=== PATIENT | male | born 1975 | race Caucasian/White ===

== ENCOUNTER 2016-06-24 11:22 | Emergency (ER) | payer OTHER ==
[2016-06-24] MEDS ORDERED: KETOROLAC 60 MG/2 ML VIAL IVP STA (12:07)
--- NOTE | 2016-06-24 12:09 | ED ---
General Adult HPI - General Chief complaint: Abdominal Pain Stated complaint: Flank/chest pain Time Seen by Provider: 06/24/16 11:50 Source: patient, RN notes reviewed Mode of arrival: ambulatory Limitations: no limitations - History of Present Illness Initial comments: This is a 40-year-old male presents emergency Department complaining of left lateral rib pain. Patient states his been ongoing for a week he saw his primary medical care doctor and was told he had strained his rib cage. Patient states she's been coughing quite a bit coughing up quite a bit of sputum. Patient denies any smoking history. Patient denies any anterior chest pain. Patient denies being short of breath. Patient states coughing does make the pain worse. Patient states he did not take anything for. Patient denied any abdominal pain to myself but he did tell triage she had abdominal pain. Patient denies any nausea vomiting diarrhea. Patient denies any chills he states he felt warm yesterday but didn't take his temperature. Patient denies headache patient denies numbness weakness. Patient denies any lightheadedness dizziness or near syncopal episode. Patient denies any dysuria hematuria urinary frequency. - Related Data Home Medications Medication Instructions Recorded Confirmed Ibuprofen [Motrin] 800 mg PO Q8HR PRN 12/24/15 06/24/16 Previous Rx's Medication Instructions Recorded Azithromycin [Zithromax Tri-James] 500 mg PO DAILY #3 tab 06/24/16 Ibuprofen [Motrin] 800 mg PO Q6HR PRN #20 tab 06/24/16 Allergies Allergy/AdvReac Type Severity Reaction Status Date / Time No Known Allergies Allergy Verified 06/24/16 11:48 Review of Systems ROS Statement: Those systems with pertinent positive or pertinent negative responses have been documented in the HPI. ROS Other: All systems not noted in ROS Statement are negative. Past Medical History Past Medical History: Asthma, GERD/Reflux, Hypertension, Osteoarthritis (OA) Additional Past Medical History / Comment(s): Bronchitis approx. 8 months ago. Hx. of hiatal hernia. History of Any Multi-Drug Resistant Organisms: MRSA Date of last positivie culture/infection: 01/2015 MDRO Source:: back of neck Past Surgical History: Hernia Repair Additional Past Surgical History / Comment(s): RIGHT LEG DEBRIDEMENT POST SPIDER BITE years ago. EGD/COLONOSCOPY, 07-24-15 Kary Fundoplication. Past Anesthesia/Blood Transfusion Reactions: No Reported Reaction Past Psychological History: No Psychological Hx Reported Smoking Status: Former smoker Past Alcohol Use History: Occasional Additional Past Alcohol Use History / Comment(s): QUIT SMOKING 1998, STARTED SMOKING AT AGE 19, smoked less than 1 PPD. Past Drug Use History: None Reported - Past Family History Father History Unknown: Yes Family Medical History: No Reported History Mother Family Medical History: Cancer Additional Family Medical History / Comment(s): Tongue General Exam - General Exam Comments Initial Comments: GENERAL: Patient is well-developed and well-nourished. Patient is nontoxic and well- hydrated and is in mild distress. ENT: Neck is soft and supple. No significant lymphadenopathy is noted. Oropharynx is clear. Moist mucous membranes. Neck has full range of motion without eliciting any pain. EYES: The sclera were anicteric and conjunctiva were pink and moist. Extraocular movements were intact and pupils were equal round and reactive to light. Eyelids were unremarkable. PULMONARY: Unlabored respirations. Good breath sounds bilaterally. No audible rales rhonchi or wheezing was noted. CARDIOVASCULAR: There is a regular rate and rhythm without any murmurs gallops or rubs. Patient has tenderness along the lateral rib cage on the left. ABDOMEN: Soft and nontender with normal bowel sounds. No palpable organomegaly was noted. There is no palpable pulsatile mass. SKIN: Skin is clear with no lesions or rashes and otherwise unremarkable. NEUROLOGIC: Patient is alert and oriented x3. Cranial nerves II through XII are grossly intact. Motor and sensory are also intact. Normal speech, volume and content. Symmetrical smile. MUSCULOSKELETAL: Normal extremities with adequate strength and full range of motion. LYMPHATICS: No significant lymphadenopathy is noted PSYCHIATRIC: Normal psychiatric evaluation. Limitations: no limitations Course Vital Signs 06/24/16 06/24/16 11:46 12:33 Temperature 98.3 F 99 F Pulse Rate 91 81 Respiratory 16 18 Rate Blood Pressure 126/90 131/92 O2 Sat by Pulse 98 99 Oximetry Medical Decision Making - Medical Decision Making Chest x-ray is normal. - Lab Data Result diagrams: 06/24/16 11:50 06/24/16 11:50 Lab Results 06/24/16 06/24/16 06/24/16 Range/Units 11:50 11:50 11:50 WBC 6.8 (3.8-10.6) k/uL RBC 4.64 (4.30-5.90) m/uL Hgb 14.7 (13.0-17.5) gm/dL Hct 43.0 (39.0-53.0) % MCV 92.8 (80.0-100.0) fL MCH 31.6 (25.0-35.0) pg MCHC 34.1 (31.0-37.0) g/dL RDW 12.5 (11.5-15.5) % Plt Count 207 (150-450) k/uL Neutrophils % 69 % Lymphocytes % 22 % Monocytes % 5 % Eosinophils % 1 % Basophils % 1 % Neutrophils # 4.7 (1.3-7.7) k/uL Lymphocytes # 1.5 (1.0-4.8) k/uL Monocytes # 0.3 (0-1.0) k/uL Eosinophils # 0.1 (0-0.7) k/uL Basophils # 0.0 (0-0.2) k/uL Sodium 143 (137-145) mmol/L Potassium 4.2 (3.5-5.1) mmol/L Chloride 102 (98-107) mmol/L Carbon Dioxide 26 (22-30) mmol/L Anion Gap 15 mmol/L BUN 12 (9-20) mg/dL Creatinine 0.93 (0.66-1.25) mg/dL Est GFR (MDRD) Af Amer >60 (>60 ml/min/1.73 sqM) Est GFR (MDRD) Non-Af >60 (>60 ml/min/1.73 sqM) Glucose 90 (74-99) mg/dL Calcium 9.3 (8.4-10.2) mg/dL Total Bilirubin 0.7 (0.2-1.3) mg/dL AST 41 (17-59) U/L ALT 49 (21-72) U/L Alkaline Phosphatase 62 (38-126) U/L Total Protein 8.1 (6.3-8.2) g/dL Albumin 4.7 (3.5-5.0) g/dL Urine Color Yellow Urine Appearance Clear (Clear) Urine pH 7.0 (5.0-8.0) Ur Specific [place] 1.012 (1.001-1.035) Urine Protein Trace H (Negative) Urine Glucose (UA) Negative (Negative) Urine Ketones Negative (Negative) Urine Blood Negative (Negative) Urine Nitrate Negative (Negative) Urine Bilirubin Negative (Negative) Urine Urobilinogen <2.0 (<2.0) mg/dL Ur Leukocyte Esterase Negative (Negative) Disposition Clinical Impression: Acute bronchitis, Chest wall pain Disposition: HOME SELF-CARE Condition: Good Instructions: Acute Bronchitis (ED) Prescriptions: Azithromycin [Zithromax Tri-James] 500 mg PO DAILY #3 tab Ibuprofen [Motrin] 800 mg PO Q6HR PRN #20 tab PRN Reason: Pain Time of Disposition: 13:35
[2016-06-24 12:35] VITALS: TEMP 99
--- NOTE | 2016-06-24 12:51 | XR ---
EXAMINATION TYPE: XR chest 2V DATE OF EXAM: 06/24/2016 12:47 PM COMPARISON: 02/08/2016 HISTORY: 40-year-old male difficulty breathing, fever, cough, congestion TECHNIQUE: PA and lateral views FINDINGS: The cardiomediastinal silhouette, aorta, and pulmonary vasculature are within normal limits. Lungs an d pleural spaces are clear. IMPRESSION: No acute cardiopulmonary process.
[2016-06-24 13:01] LABS: Basophils % (A) 1 %; CH 32.4; Eosinophils # (A) 0.1 k/uL (0-0.7); Eosinophils % (A) 1 %; HDW 2.41; HGB 14.7 gm/dL (13.0-17.5); Luc # (Auto) 0.17; Luc % (Auto) 3; Lymphocytes # (A) 1.5 k/uL (1.0-4.8); Lymphocytes % (A) 22 %; MCH 31.6 pg (25.0-35.0); MCHC 34.1 g/dL (31.0-37.0); MCV 92.8 fL (80.0-100.0); Mean Platelet Volume 7.5; Monocytes # (A) 0.3 k/uL (0-1.0); Monocytes % (A) 5 %; Neutrophils # (A) 4.7 k/uL (1.3-7.7); Neutrophils % (A) 69 %; RBC 4.64 m/uL (4.30-5.90); RDW 12.5 % (11.5-15.5); WBC 6.8 k/uL (3.8-10.6); WBC (Perox) 6.84
[2016-06-24 13:07] LABS: Appearance,Urine Clear (Clear); Bilirubin,Urine Negative (Negative); Glucose,Urine (UA) Negative (Negative); Ketones,Urine Negative (Negative); Leukocyte Esterase,Urine Negative (Negative); Nitrite,Urine Negative (Negative); Protein,Urine Trace (Negative); Specific Gravity,Urine 1.012 (1.001-1.035); UA Billing (MACRO vs. MICRO) CHEM; Urobilinogen,Urine <2.0 mg/dL (<2.0)
[2016-06-24 13:12] LABS: ALT 49 U/L (21-72); AST 41 U/L (17-59); Alkaline Phosphatase 62 U/L (38-126); Anion Gap 15 mmol/L; Blood Urea Nitrogen 12 mg/dL (9-20); Calcium 9.3 mg/dL (8.4-10.2); Carbon Dioxide 26 mmol/L (22-30); Chloride 102 mmol/L (98-107); Glucose 90 mg/dL (74-99); Non-African American GFR(MDRD) >60 (>60 ml/min/1.73 sqM); Potassium 4.2 mmol/L (3.5-5.1); Sodium 143 mmol/L (137-145); Total Bilirubin 0.7 mg/dL (0.2-1.3); Total Protein 8.1 g/dL (6.3-8.2)
[2016-06-24 13:43] VITALS: BP 146/87; PULSE 86; RESP 16
== END 2016-06-24 13:43 | disposition home or self-care (01) ==
LOC: EC 11:22
DX: J20.9 Acute bronchitis, unspecified (principal); R10.9 Unspecified abdominal pain; J45.909 Unspecified asthma, uncomplicated; K21.9 Gastro-esophageal reflux disease without esophagitis; I10 Essential (primary) hypertension; M19.90 Unspecified osteoarthritis, unspecified site; Z87.19 Personal history of other diseases of the digestive system
CPT/HCPCS: 99284; 96374; 36415; 80053; 85025; 81003; 71020; J1885

== ENCOUNTER 2016-07-30 13:23 | Emergency (ER) | payer OTHER ==
[2016-07-30 13:34] VITALS: RESP 18
--- NOTE | 2016-07-30 15:59 | ED ---
General Adult HPI - General Chief complaint: Upper Respiratory Infection Stated complaint: chest pain Time Seen by Provider: 07/30/16 15:45 Source: patient, RN notes reviewed Mode of arrival: ambulatory Limitations: no limitations - History of Present Illness Initial comments: Patient is a 41-year-old male presents to the emergency room for evaluation of chest pain. Patient states the pain began yesterday. Patient states all during the day yesterday and today he began not feeling very well. Patient states he had the chills. Patient denies any history of chest pain. Patient denies any cardiac history. Patient denies any history of high blood pressure, pulmonary issues or diabetes. Patient denies smoking. Patient denies shortness of breath. Patient states the pain feels like a burning sensation going across his chest. Patient denies diaphoresis. Patient denies numbness or tingling in his fingers. Patient denies recent heavy lifting. Patient states also having all over body aches. Patient states took DayQuil with no relief of symptoms. Patient states he received his influenza vaccine this year. Patient denies nausea or vomiting. Patient denies abdominal pain. Patient denies has patient or diarrhea. Patient states the pain is not any worse or better after eating. - Related Data Previous Rx's Medication Instructions Recorded Ibuprofen [Motrin] 800 mg PO Q6HR PRN #20 tab 06/24/16 Famotidine [Pepcid] 20 mg PO DAILY PRN #12 tablet 07/30/16 Allergies Allergy/AdvReac Type Severity Reaction Status Date / Time No Known Allergies Allergy Verified 07/30/16 16:20 Review of Systems ROS Statement: Those systems with pertinent positive or pertinent negative responses have been documented in the HPI. ROS Other: All systems not noted in ROS Statement are negative. Past Medical History Past Medical History: Asthma, GERD/Reflux, Hypertension, Osteoarthritis (OA) Additional Past Medical History / Comment(s): Bronchitis approx. 8 months ago. Hx. of hiatal hernia. History of Any Multi-Drug Resistant Organisms: MRSA Date of last positivie culture/infection: 01/2015 MDRO Source:: back of neck Past Surgical History: Hernia Repair Additional Past Surgical History / Comment(s): RIGHT LEG DEBRIDEMENT POST SPIDER BITE years ago. EGD/COLONOSCOPY, 07-24-15 Kary Fundoplication. Past Anesthesia/Blood Transfusion Reactions: No Reported Reaction Past Psychological History: No Psychological Hx Reported Smoking Status: Former smoker Past Alcohol Use History: Occasional Additional Past Alcohol Use History / Comment(s): QUIT SMOKING 1998, STARTED SMOKING AT AGE 19, smoked less than 1 PPD. Past Drug Use History: None Reported - Past Family History Father History Unknown: Yes Family Medical History: No Reported History Mother Family Medical History: Cancer Additional Family Medical History / Comment(s): Tongue General Exam - General Exam Comments Initial Comments: Sitting in exam room in no acute distress. Limitations: no limitations General appearance: alert, in no apparent distress Head exam: Present: atraumatic, normocephalic, normal inspection Eye exam: Present: normal appearance ENT exam: Present: normal exam Respiratory exam: Present: normal lung sounds bilaterally. Absent: respiratory distress Cardiovascular Exam: Present: normal rhythm, tachycardia, normal heart sounds Extremities exam: Present: normal inspection Back exam: Present: normal inspection Neurological exam: Present: alert, oriented X3, CN II-XII intact, normal gait Psychiatric exam: Present: normal affect, normal mood Skin exam: Present: warm, dry, intact, normal color. Absent: rash Course Vital Signs 07/30/16 07/30/16 13:31 17:26 Temperature 97.3 F L 98.9 F Pulse Rate 109 H 88 Respiratory 18 18 Rate Blood Pressure 141/67 120/88 O2 Sat by Pulse 100 100 Oximetry EKG Findings - EKG Comments: EKG Findings:: Normal sinus rhythm, ventricular rate 80 bpm, IN interval 128 ms , QRS duration 82 ms, QT/QTC 362/417 ms, no ST elevations. Medical Decision Making - Medical Decision Making Patient is a 41-year-old male presents to the emergency for evaluation of chest pain. Cardiac labs within normal limits. Other labs within normal limits. Rapid influenza negative. Chest x-ray shows no acute findings. Patient's past visits reviewed. Patient has been here multiple times for chest pain and gastritis. Patient states that he is feeling better after GI cocktail given. Patient's symptoms most likely related to GERD. Will place patient on Pepcid and have him follow-up with his primary care provider. Results discussed with patient. Patient states he understands everything that was discussed with him. Return parameters discussed. Case discussed with Dr. Mcbride. - Lab Data Result diagrams: 07/30/16 16:10 07/30/16 16:10 Lab Results 07/30/16 07/30/16 07/30/16 Range/Units 16:10 16:10 16:10 WBC 6.1 (3.8-10.6) k/uL RBC 4.41 (4.30-5.90) m/uL Hgb 14.1 (13.0-17.5) gm/dL Hct 42.2 (39.0-53.0) % MCV 95.6 (80.0-100.0) fL MCH 32.0 (25.0-35.0) pg MCHC 33.5 (31.0-37.0) g/dL RDW 12.8 (11.5-15.5) % Plt Count 175 (150-450) k/uL Neutrophils % 65 % Lymphocytes % 25 % Monocytes % 4 % Eosinophils % 2 % Basophils % 1 % Neutrophils # 4.0 (1.3-7.7) k/uL Lymphocytes # 1.6 (1.0-4.8) k/uL Monocytes # 0.2 (0-1.0) k/uL Eosinophils # 0.1 (0-0.7) k/uL Basophils # 0.1 (0-0.2) k/uL PT (9.0-12.0) sec INR (<1.1) APTT (22.0-30.0) sec Sodium (137-145) mmol/L Potassium (3.5-5.1) mmol/L Chloride (98-107) mmol/L Carbon Dioxide (22-30) mmol/L Anion Gap mmol/L BUN (9-20) mg/dL Creatinine (0.66-1.25) mg/dL Est GFR (MDRD) Af Amer (>60 ml/min/1.73 sqM) Est GFR (MDRD) Non-Af (>60 ml/min/1.73 sqM) Glucose (74-99) mg/dL Calcium (8.4-10.2) mg/dL Magnesium (1.6-2.3) mg/dL Total Bilirubin (0.2-1.3) mg/dL AST (17-59) U/L ALT (21-72) U/L Alkaline Phosphatase (38-126) U/L Total Creatine Kinase 148 (55-170) U/L CK-MB (CK-2) 1.0 (0.0-2.4) ng/mL CK-MB (CK-2) Rel Index 0.7 Troponin I <0.012 (0.000-0.034) ng/mL Total Protein (6.3-8.2) g/dL Albumin (3.5-5.0) g/dL Influenza Type A RNA Not Detected (Not Detectd) Influenza Type B (PCR) Not Detected (Not Detectd) 07/30/16 07/30/16 Range/Units 16:10 16:10 WBC (3.8-10.6) k/uL RBC (4.30-5.90) m/uL Hgb (13.0-17.5) gm/dL Hct (39.0-53.0) % MCV (80.0-100.0) fL MCH (25.0-35.0) pg MCHC (31.0-37.0) g/dL RDW (11.5-15.5) % Plt Count (150-450) k/uL Neutrophils % % Lymphocytes % % Monocytes % % Eosinophils % % Basophils % % Neutrophils # (1.3-7.7) k/uL Lymphocytes # (1.0-4.8) k/uL Monocytes # (0-1.0) k/uL Eosinophils # (0-0.7) k/uL Basophils # (0-0.2) k/uL PT 10.1 (9.0-12.0) sec INR 1.0 (<1.1) APTT 22.7 (22.0-30.0) sec Sodium 142 (137-145) mmol/L Potassium 4.2 (3.5-5.1) mmol/L Chloride 104 (98-107) mmol/L Carbon Dioxide 24 (22-30) mmol/L Anion Gap 14 mmol/L BUN 13 (9-20) mg/dL Creatinine 1.00 (0.66-1.25) mg/dL Est GFR (MDRD) Af Amer >60 (>60 ml/min/1.73 sqM) Est GFR (MDRD) Non-Af >60 (>60 ml/min/1.73 sqM) Glucose 92 (74-99) mg/dL Calcium 9.6 (8.4-10.2) mg/dL Magnesium 2.1 (1.6-2.3) mg/dL Total Bilirubin 0.8 (0.2-1.3) mg/dL AST 31 (17-59) U/L ALT 36 (21-72) U/L Alkaline Phosphatase 55 (38-126) U/L Total Creatine Kinase (55-170) U/L CK-MB (CK-2) (0.0-2.4) ng/mL CK-MB (CK-2) Rel Index Troponin I (0.000-0.034) ng/mL Total Protein 8.0 (6.3-8.2) g/dL Albumin 4.7 (3.5-5.0) g/dL Influenza Type A RNA (Not Detectd) Influenza Type B (PCR) (Not Detectd) - Radiology Data Radiology results: report reviewed, image reviewed Disposition Clinical Impression: GERD (gastroesophageal reflux disease) Disposition: HOME SELF-CARE Condition: Good Instructions: Gastroesophageal Reflux Disease (ED) Additional Instructions: Take Pepcid as directed. Please follow up with primary care provider in 1-2 days. If any new symptom arises or symptoms worsen, return to ER as soon as possible. Prescriptions: Famotidine [Pepcid] 20 mg PO DAILY PRN #12 tablet PRN Reason: Pain Referrals: Low Beckford MD [Primary Care Provider] - 1-2 days Time of Disposition: 18:05
[2016-07-30] MEDS: ASPIRIN 81 MG CHEW PO STA (16:17)
--- NOTE | 2016-07-30 16:25 | XR ---
EXAMINATION TYPE: XR chest 2V DATE OF EXAM: 07/30/2016 4:21 PM COMPARISON: Prior chest x-ray June 24, 2016. HISTORY: Chest pain. TECHNIQUE: Frontal and lateral views of the chest are obtained. FINDINGS: There is no focal air space opacity, pleural effusion, or pneumothorax seen. The cardiac silhouette size is within normal limits. The osseous structures are intact. IMPRESSION: No acute cardiopulmonary process. No significant change from prior.
[2016-07-30 16:33] LABS: Basophils # (A) 0.1 k/uL (0-0.2); Basophils % (A) 1 %; CH 32.5; CHCM 34.1; Eosinophils # (A) 0.1 k/uL (0-0.7); Eosinophils % (A) 2 %; HCT 42.2 % (39.0-53.0); HDW 2.34; HGB 14.1 gm/dL (13.0-17.5); Luc % (Auto) 3; Lymphocytes # (A) 1.6 k/uL (1.0-4.8); Lymphocytes % (A) 25 %; MCHC 33.5 g/dL (31.0-37.0); MCV 95.6 fL (80.0-100.0); Mean Platelet Volume 8.2; Monocytes # (A) 0.2 k/uL (0-1.0); Monocytes % (A) 4 %; Neutrophils % (A) 65 %; RBC 4.41 m/uL (4.30-5.90); RDW 12.8 % (11.5-15.5); WBC 6.1 k/uL (3.8-10.6); WBC (Perox) 6.34
[2016-07-30 16:43] LABS: Partial Thromboplastin Time 22.7 sec (22.0-30.0); Prothrombin Time 10.1 sec (9.0-12.0)
[2016-07-30 16:44] LABS: ALT 36 U/L (21-72); AST 31 U/L (17-59); Alkaline Phosphatase 55 U/L (38-126); Anion Gap 14 mmol/L; Blood Urea Nitrogen 13 mg/dL (9-20); Calcium 9.6 mg/dL (8.4-10.2); Carbon Dioxide 24 mmol/L (22-30); Chloride 104 mmol/L (98-107); Glucose 92 mg/dL (74-99); Magnesium 2.1 mg/dL (1.6-2.3); Non-African American GFR(MDRD) >60 (>60 ml/min/1.73 sqM); Potassium 4.2 mmol/L (3.5-5.1); Sodium 142 mmol/L (137-145); Total Bilirubin 0.8 mg/dL (0.2-1.3)
[2016-07-30 16:55] LABS: Creatine Kinase 148 U/L (55-170)
[2016-07-30 17:09] LABS: Troponin I <0.012 ng/mL (0.000-0.034)
[2016-07-30] MEDS: MAG HYDROX/AL HYDROX/SIMETH 30 ML, HYOSCYAMINE ELIXIR 10 ML, CIMETIDINE HCL 300 MG, LID... PO STA ×4 (17:27)
[2016-07-30 18:34] VITALS: BP 121/87; PULSE 90; TEMP 98.6
== END 2016-07-30 18:34 | disposition home or self-care (01) ==
LOC: EC 13:23
DX: K21.9 Gastro-esophageal reflux disease without esophagitis (principal); Z87.891 Personal history of nicotine dependence
CPT/HCPCS: 36415; 71020; 80053; 82550; 82553; 83735; 84484; 85025; 85610; 85730; 87502; 93005; 99284

== ENCOUNTER 2016-08-26 09:17 | Day surgery (SDC) | payer OTHER ==
[2016-08-25 14:39] VITALS: BMI 24.3
[~2016-08-26 09:17] MED LIST: LACTATED RINGERS 1,000 ML IV SCH; LIDOCAINE 1% 20 ML VIAL (10MG/ML) FOR IV START INTRADERMA PRN
[2016-08-26 09:46] VITALS: RESP 16; TEMP 97.7
[2016-08-26] MEDS: LACTATED RINGERS 1,000 ML IV SCH ×2 (09:46→10:12)
[2016-08-26] MEDS ORDERED: LIDOCAINE 1% INJ 10MG/ML (20 ML MDV) ONE (10:14)
[2016-08-26] MEDS ORDERED: PROPOFOL 10 MG/ML 20 ML VIAL IV ONE (10:14)
[2016-08-26] MEDS ORDERED: MIDAZOLAM 2 MG/2 ML VIAL ONE (10:14)
--- NOTE | 2016-08-26 10:35 | P.GSHP ---
History of Present Illness H&P Date: 08/26/16 Chief Complaint: Colitis This a 41-year-old male referred from Dr. Low Beckford. Patient has a history of colitis. States he's had abdominal pain and frequent bowel movements. - Constitutional Constitutional: Reports as per HPI Past Medical History Past Medical History: Asthma, GERD/Reflux, Hypertension, Osteoarthritis (OA) Additional Past Medical History / Comment(s): Hx Bronchitis,hiatal hernia. History of Any Multi-Drug Resistant Organisms: MRSA Date of last positivie culture/infection: 01/2015 MDRO Source:: back of neck Past Surgical History: Hernia Repair Additional Past Surgical History / Comment(s): RIGHT LEG DEBRIDEMENT POST SPIDER BITE years ago. EGD/COLONOSCOPY, 07-24-15 Kary Fundoplication. Past Anesthesia/Blood Transfusion Reactions: No Reported Reaction Past Psychological History: No Psychological Hx Reported Smoking Status: Former smoker Past Alcohol Use History: Occasional Additional Past Alcohol Use History / Comment(s): QUIT SMOKING 1998, STARTED SMOKING AT AGE 19, smoked less than 1 PPD. Past Drug Use History: None Reported - Past Family History Father History Unknown: Yes Family Medical History: No Reported History Mother Family Medical History: Cancer Additional Family Medical History / Comment(s): Tongue Medications and Allergies Home Medications Medication Instructions Recorded Confirmed Type Calcium Carbonate [Tums] 500 mg PO DAILY PRN 08/25/16 08/26/16 History Allergies Allergy/AdvReac Type Severity Reaction Status Date / Time No Known Allergies Allergy Verified 08/26/16 09:27 Surgical - Exam Vital Signs Temp Pulse Resp BP Pulse Ox 97.7 F 78 16 126/82 98 08/26/16 09:40 08/26/16 09:40 08/26/16 09:40 08/26/16 09:40 08/26/16 09:40 - General well developed, no distress - Eyes PERRL - ENT normal pinna - Neck no masses - Respiratory normal expansion - Cardiovascular Rhythm: regular - Abdomen Abdomen: soft, non tender Assessment and Plan Plan: History of colitis. We'll perform colonoscopy
--- NOTE | 2016-08-26 10:51 | P.OP ---
Date of Procedure: 08/26/16 Preoperative Diagnosis: Colitis Postoperative Diagnosis: Sigmoid colon biopsy pathology pending Normal colonoscopy Procedure(s) Performed: Colonoscopy Anesthesia: MAC Surgeon: Arsenio Mahan Pathology: other (Sigmoid colon) Condition: stable Disposition: PACU Description of Procedure: The patient's placed on the endoscopy table lateral position. He received IV sedation. Digital rectal exam was performed which revealed no abnormalities. This prostate was symmetrical without nodules. The flexible colonoscope was then placed patient anus and passed throughout the entire colon. The ileocecal valve was visualized. Cecum, ascending and transverse colon appeared normal. The descending colon appeared normal. Scope was then brought back and sigmoid colon and there was some questionable inflammation this area is biopsied. The scope was then brought back the rectum and this appeared normal. Scope was withdrawn for patient.
[2016-08-26 11:08] VITALS: PULSE 85
[2016-08-26 11:17] VITALS: BP 119/78
== END 2016-08-26 11:31 | disposition home or self-care (01) ==
LOC: ORWHC2ENDO 09:17
PROVIDERS: ATTEND Surgery
DX: K63.89 Other specified diseases of intestine (principal); R10.9 Unspecified abdominal pain; Z87.891 Personal history of nicotine dependence
CPT/HCPCS: 88305; 45380; J2250; J2001; J2704

== ENCOUNTER 2018-04-22 09:10 | Emergency (ER) | payer OTHER ==
[2018-04-22 09:15] VITALS: BP 123/89; PULSE 99; RESP 18; TEMP 97.5
--- NOTE | 2018-04-22 09:58 | XR ---
EXAMINATION TYPE: XR chest 2V DATE OF EXAM: 04/22/2018 COMPARISON: 07/30/2016 HISTORY: 42-year-old male with cough and pain TECHNIQUE: PA and lateral views FINDINGS: The cardiomediastinal silhouette, aorta, and pulmonary vasculature are within normal limits. Lungs an d pleural spaces are clear. IMPRESSION: No acute cardiopulmonary process.
--- NOTE | 2018-04-22 10:10 | ED ---
URI HPI - General Chief Complaint: Upper Respiratory Infection Stated Complaint: cough Time Seen by Provider: 04/22/18 09:15 Source: patient, RN notes reviewed Mode of arrival: ambulatory Limitations: no limitations - History of Present Illness Initial Comments: 42-year-old male presents emergency Department chief complaint cough congestion times one week. Patient states is not getting better he is tried over-the- counter cough and cold medications no relief. No fever no chills. Patient states it hurts to cough. Patient states that he also has severe sinus congestion and sinus pressure. Patient has a mild sore throat no headache no dizziness no neck pain no neck stiffness. - Related Data Home Medications Medication Instructions Recorded Confirmed Ibuprofen [Motrin] 600 mg PO QID 04/22/18 04/22/18 Previous Rx's Medication Instructions Recorded Amoxicillin/Potassium Clav 1 tab PO Q12HR #20 tab 04/22/18 [Augmentin 875-125 Tablet] predniSONE 50 mg PO DAILY #5 tab 04/22/18 Allergies Allergy/AdvReac Type Severity Reaction Status Date / Time No Known Allergies Allergy Verified 04/22/18 09:41 Review of Systems ROS Statement: Those systems with pertinent positive or pertinent negative responses have been documented in the HPI. ROS Other: All systems not noted in ROS Statement are negative. Past Medical History Past Medical History: Asthma, GERD/Reflux, Hypertension, Osteoarthritis (OA) Additional Past Medical History / Comment(s): Hx Bronchitis,hiatal hernia. History of Any Multi-Drug Resistant Organisms: MRSA Date of last positivie culture/infection: 01/2015 MDRO Source:: back of neck Past Surgical History: Hernia Repair Additional Past Surgical History / Comment(s): RIGHT LEG DEBRIDEMENT POST SPIDER BITE years ago. EGD/COLONOSCOPY, 07-24-15 Kary Fundoplication. Past Anesthesia/Blood Transfusion Reactions: No Reported Reaction Past Psychological History: No Psychological Hx Reported Smoking Status: Former smoker Past Alcohol Use History: Occasional Past Drug Use History: None Reported - Past Family History Father History Unknown: Yes Family Medical History: No Reported History Mother Family Medical History: Cancer Additional Family Medical History / Comment(s): Tongue General Exam Limitations: no limitations General appearance: alert, in no apparent distress Head exam: Present: atraumatic, normocephalic, normal inspection Eye exam: Present: normal appearance, PERRL, EOMI. Absent: scleral icterus, conjunctival injection, periorbital swelling ENT exam: Present: mucous membranes moist, TM's normal bilaterally, normal external ear exam. Absent: normal oropharynx (Postnasal drainage) Neck exam: Present: normal inspection, full ROM. Absent: tenderness, meningismus, lymphadenopathy Respiratory exam: Present: normal lung sounds bilaterally, chest wall tenderness. Absent: respiratory distress, wheezes, rales, rhonchi, stridor Cardiovascular Exam: Present: regular rate, normal rhythm, normal heart sounds. Absent: systolic murmur, diastolic murmur, rubs, gallop, clicks GI/Abdominal exam: Present: soft, normal bowel sounds. Absent: distended, tenderness, guarding, rebound, rigid Course Vital Signs 04/22/18 09:12 Temperature 97.5 F L Pulse Rate 99 Respiratory 18 Rate Blood Pressure 123/89 O2 Sat by Pulse 98 Oximetry Medical Decision Making - Medical Decision Making 42-year-old male presented for cough congestion, chest wall pain. Patient is costochondritis, acute sinusitis, acute bronchitis. Patient with Augmentin and steroids. Patient follow-up PCP and return for any worsening symptoms. Disposition Clinical Impression: Sinusitis, Bronchitis, Costochondritis, acute Disposition: HOME SELF-CARE Condition: Stable Instructions: Costochondritis (ED), Sinusitis (ED) Additional Instructions: Please return to the Emergency Department if symptoms worsen or any other concerns. Prescriptions: Amoxicillin/Potassium Clav [Augmentin 875-125 Tablet] 1 tab PO Q12HR #20 tab predniSONE 50 mg PO DAILY #5 tab Is patient prescribed a controlled substance at d/c from ED?: No Referrals: Low Beckford MD [Primary Care Provider] - 1-2 days Time of Disposition: 10:12
== END 2018-04-22 10:46 | disposition home or self-care (01) ==
LOC: EC 09:10
DX: J01.90 Acute sinusitis, unspecified (principal); J20.9 Acute bronchitis, unspecified; M94.0 Chondrocostal junction syndrome [Tietze]; J45.909 Unspecified asthma, uncomplicated; M19.90 Unspecified osteoarthritis, unspecified site; Z86.14 Personal history of Methicillin resistant Staphylococcus aureus infection; Z87.891 Personal history of nicotine dependence; Z79.1 Long term (current) use of non-steroidal anti-inflammatories (NSAID)
CPT/HCPCS: 71046; 99283

== ENCOUNTER 2018-10-29 10:56 | Emergency (ER) | payer OTHER ==
[2018-10-29 11:13] VITALS: BP 130/85; PULSE 79; RESP 18; TEMP 98.2
[2018-10-29] MEDS ORDERED: DIPH,PERTUS(ACELL)TETVAC-LF 0.5 ML VIAL IM ONE (11:29)
--- NOTE | 2018-10-29 11:46 | ED ---
Animal Bite HPI - General Chief Complaint: Animal Bite Stated Complaint: [facility] - DOGBITE Time Seen by Provider: 10/29/18 11:18 Source: patient Mode of arrival: ambulatory Limitations: no limitations - History of Present Illness Initial Comments: Patient is a 43-year-old male presents emergency Department with a dog bite. 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 Patient reports it was a medium-sized dog the bit him on the anterior aspect of the right lower leg. Patient reports minimal pain at the site of injury with no radiation. Patient denies any numbness or tingling. Patient states that he spoke with a dog launch operator who stated its vaccinations are up-to-date.. Patient denies taking any medication to alleviate the pain. Patient denies fever, nausea, vomiting, headache, chest pain. - Related Data Home Medications Medication Instructions Recorded Confirmed Ibuprofen [Motrin] 600 mg PO QID 04/22/18 04/22/18 Previous Rx's Medication Instructions Recorded Amoxicillin/Potassium Clav 1 tab PO Q12HR #20 tab 04/22/18 [Augmentin 875-125 Tablet] predniSONE 50 mg PO DAILY #5 tab 04/22/18 Amoxicillin/Potassium Clav 1 tab PO Q12HR #20 tab 10/29/18 [Augmentin 875-125 Tablet] Allergies Allergy/AdvReac Type Severity Reaction Status Date / Time No Known Allergies Allergy Verified 10/29/18 11:12 Review of Systems ROS Statement: Those systems with pertinent positive or pertinent negative responses have been documented in the HPI. ROS Other: All systems not noted in ROS Statement are negative. Past Medical History Past Medical History: Asthma, GERD/Reflux, Hypertension, Osteoarthritis (OA) Additional Past Medical History / Comment(s): Hx Bronchitis,hiatal hernia. History of Any Multi-Drug Resistant Organisms: MRSA Date of last positivie culture/infection: 01/2015 MDRO Source:: back of neck Past Surgical History: Hernia Repair Additional Past Surgical History / Comment(s): RIGHT LEG DEBRIDEMENT POST SPIDER BITE years ago. EGD/COLONOSCOPY, 07-24-15 Kary Fundoplication. Past Anesthesia/Blood Transfusion Reactions: No Reported Reaction Past Psychological History: No Psychological Hx Reported Smoking Status: Former smoker Past Alcohol Use History: Occasional Past Drug Use History: None Reported - Past Family History Father History Unknown: Yes Family Medical History: No Reported History Mother Family Medical History: Cancer Additional Family Medical History / Comment(s): Tongue General Exam Limitations: no limitations General appearance: alert, in no apparent distress Head exam: Present: atraumatic, normocephalic, normal inspection Eye exam: Present: normal appearance, PERRL, EOMI. Absent: scleral icterus Pupils: Present: normal accommodation ENT exam: Present: normal exam, mucous membranes moist Neck exam: Present: normal inspection Respiratory exam: Present: normal lung sounds bilaterally Cardiovascular Exam: Present: regular rate, normal rhythm, normal heart sounds Right Upper Leg exam: Present: normal inspection, full ROM Knee exam: Present: normal inspection, full ROM Lower Leg exam: Present: full ROM, abrasion (1 cm), laceration (0.3 mm puncture wound). Absent: deformity, crepitus, erythema, Homans' sign Ankle exam: Present: normal inspection, full ROM Foot/Toe exam: Present: normal inspection, full ROM Neurovascular tendon exam: Present: no vascular compromise Gait: observed and normal Back exam: Present: normal inspection, full ROM Neurological exam: Present: alert, oriented X3 Psychiatric exam: Present: normal affect, normal mood Skin exam: Present: warm, intact, normal color Course Vital Signs 10/29/18 11:10 Temperature 98.2 F Pulse Rate 79 Respiratory 18 Rate Blood Pressure 130/85 O2 Sat by Pulse 99 Oximetry Medical Decision Making - Medical Decision Making 43 -year-old male presents to emergency department after a dog bite. Based on physical examination no suturing is needed to approximate the injury. Patient requested tetanus prophylaxis. Patient will be discharged with a ten-day course a course of Augmentin. Patient was offered rabies prophylaxis but he declined. Patient advised to monitor dog for possible signs of rabies. Strict return parameters were thoroughly discussed with patient. Patient advised to follow-up with primary care. Patient advised to return to emergency department if symptoms worsen. Case discussed physician. Disposition Clinical Impression: Bite by animal Disposition: HOME SELF-CARE Instructions (If sedation given, give patient instructions): Animal Bite (ED) Additional Instructions: Please see prescribed medication as directed. Please return to emergency department if symptoms worsen. Please follow up with primary care. Is patient prescribed a controlled substance at d/c from ED?: No Referrals: Low Beckford MD [Primary Care Provider] - 1-2 days Time of Disposition: 11:50
== END 2018-10-29 12:20 | disposition home or self-care (01) ==
LOC: EC 10:56
DX: S81.851A Open bite, right lower leg, initial encounter (principal); M19.90 Unspecified osteoarthritis, unspecified site; Z23 Encounter for immunization; Z86.14 Personal history of Methicillin resistant Staphylococcus aureus infection; Z87.891 Personal history of nicotine dependence; Z79.1 Long term (current) use of non-steroidal anti-inflammatories (NSAID); Z53.29 Procedure and treatment not carried out because of patient's decision for other reasons; W54.0XXA Bitten by dog, initial encounter; Y92.61 Building [any] under construction as the place of occurrence of the external cause; Y99.0 Civilian activity done for income or pay
CPT/HCPCS: 90471; 90715; 99283

== ENCOUNTER → 2020-04-18 | Outpatient (CLI) | payer OTHER ==
--- NOTE | 2020-04-18 13:26 | XR ---
Left wrist and left hand HISTORY: S 60.212A, S 60.22A, trauma and pain 4 views of the left wrist, 3 views of the left hand submitted Bone mineralization, joint spaces and alignment are maintained. There is soft tissue swelling. Linear focus of increased attenuation measuring 1 mm x 4 mm is present within the soft tissues volar to the distal second metacarpal. IMPRESSION: No fracture or dislocation is evident. Radiopaque foreign body of indeterminate acuity.
== END | disposition home or self-care (01) ==
LOC: RADXRMAIN 12:20
PROVIDERS: ATTEND Emergency Medicine
DX: S60.212A Contusion of left wrist, initial encounter (principal); S60.222A Contusion of left hand, initial encounter

== ENCOUNTER 2020-05-22 14:57 | Emergency (ER) | payer OTHER ==
[2020-05-22 15:05] VITALS: RESP 18; TEMP 98.3
--- NOTE | 2020-05-22 16:41 | ED ---
Fall HPI - General Chief Complaint: Fall Stated Complaint: Fall Time Seen by Provider: 05/22/20 15:29 Source: patient Mode of arrival: ambulatory - History of Present Illness Initial Comments: Patient is a 44-year-old male presenting to the emergency department after a slip and fall. Patient states he was at work, he slipped on a wet piece of plywood and fell forward, with his neck landing on a generator. This was 2 hours prior to arrival. Patient complaining of throat pain. He states when he fell forward the anterior portion of his neck hit the generator. Patient admits to a mild abrasion on his right knee, no other injuries from this fall. He denies any difficulty breathing, he was able to drink some water after the incident but states he continues to have anterior neck pain, hurts to swallow. Denies pain in the posterior neck. He denies any chest pain, no other complaints at this time. Upon arrival to the ER, his vital signs are stable. - Related Data Home Medications Medication Instructions Recorded Confirmed Ibuprofen [Motrin] 600 mg PO QID 04/22/18 04/22/18 Previous Rx's Medication Instructions Recorded Amoxicillin/Potassium Clav 1 tab PO Q12HR #20 tab 04/22/18 [Augmentin 875-125 Tablet] predniSONE 50 mg PO DAILY #5 tab 04/22/18 Amoxicillin/Potassium Clav 1 tab PO Q12HR #20 tab 10/29/18 [Augmentin 875-125 Tablet] Allergies Allergy/AdvReac Type Severity Reaction Status Date / Time No Known Allergies Allergy Verified 05/22/20 15:05 Review of Systems ROS Statement: Those systems with pertinent positive or pertinent negative responses have been documented in the HPI. ROS Other: All systems not noted in ROS Statement are negative. Past Medical History Past Medical History: Asthma, GERD/Reflux, Hypertension, Osteoarthritis (OA) Additional Past Medical History / Comment(s): Hx Bronchitis,hiatal hernia. History of Any Multi-Drug Resistant Organisms: MRSA Date of last positivie culture/infection: 01/2015 MDRO Source:: back of neck Past Surgical History: Hernia Repair Additional Past Surgical History / Comment(s): RIGHT LEG DEBRIDEMENT POST SPIDER BITE years ago. EGD/COLONOSCOPY, 3-16 Kary Fundoplication. Past Anesthesia/Blood Transfusion Reactions: No Reported Reaction Past Psychological History: No Psychological Hx Reported Past Alcohol Use History: Occasional Past Drug Use History: None Reported - Past Family History Father History Unknown: Yes Family Medical History: No Reported History Mother Family Medical History: Cancer Additional Family Medical History / Comment(s): Tongue General Exam - General Exam Comments Initial Comments: GENERAL: Patient is well-developed and well-nourished. Patient is nontoxic and in no ac [place] distress. HEAD: Atraumatic, normocephalic. EYES: Pupils equal round and reactive to light, extraocular movements intact, sclera anicteric, conjunctiva are normal. Eyelids were unremarkable. ENT: TMs normal, nares patent, oropharynx clear without exudates. Moist mucous membranes. NECK: Normal range of motion, supple without lymphadenopathy or JVD. No posterior neck pain, patient does have anterior neck pain with palpation, no obvious swelling or bruising at this time. LUNGS: Unlabored respirations. Breath sounds clear to auscultation bilaterally and equal. No wheezes rales or rhonchi. HEART: Regular rate and rhythm without murmurs, rubs or gallops. ABDOMEN: Soft, nontender, normoactive bowel sounds. No guarding, no rebound. No masses appreciated. : Deferred MUSCULOSKELETAL: Normal extremities with adequate strength and normal range of motion, no pitting or edema. No clubbing or cyanosis. NEUROLOGICAL: Patient is alert and oriented x 3. Motor and sensory are also intact. Cranial nerves II through XII grossly intact. Symmetrical smile. Normal speech, normal gait. PSYCH: Normal mood, normal affect. SKIN: Warm, Dry, normal turgor, no rashes or lesions noted. Limitations: no limitations Course Vital Signs 05/22/20 05/22/20 15:03 17:28 Temperature 98.3 F Pulse Rate 82 81 Respiratory 18 18 Rate Blood Pressure 147/86 O2 Sat by Pulse 98 99 Oximetry Medical Decision Making - Medical Decision Making Patient is a 44-year-old male here for anterior neck pain after a slip and fall at work today. No obvious distress, vital signs are normal. He does have some anterior neck pain with palpation. CT of the soft tissues of the neck which revealed no acute abnormality of the structures. Patient is able to swallow liquids. I discussed with patient this is most likely a contusion. Recommended Tylenol/motrin for discomfort. He needs to follow up with his regular doctor. Strict return parameters were discussed with the patient and he verbalized understanding. Case discussed with Dr. Gann. Disposition Clinical Impression: Fall, Contusion, throat Disposition: HOME SELF-CARE Condition: Stable Instructions (If sedation given, give patient instructions): Contusion in Adults (ED) Additional Instructions: Please return to the Emergency Department if symptoms worsen or any other concerns. Recommend Tylenol or ibuprofen for any discomfort. May apply ice to the area. Follow-up with your regular doctor. Is patient prescribed a controlled substance at d/c from ED?: No Referrals: Low Beckford MD [Primary Care Provider] - 1-2 days
--- NOTE | 2020-05-22 16:51 | CT ---
EXAMINATION TYPE: CT soft tissue neck wo con DATE OF EXAM: 05/22/2020 COMPARISON: None HISTORY: fall with blow to anterior neck, dysphagia CT DLP: 407.7 mGycm Automated exposure control for dose reduction was used. Images were obtained from the frontal sinuses to the aortic arch without contrast. Thyroid gland is symmetric. There is normal branching pattern of the great vessels on the aortic arch . There is no evidence of mediastinal adenopathy. Cervical vertebra have normal alignment. There is mild posterior disc herniation at C4-5 and C5-6. Th ere is developmentally adequate spinal canal. There is no spinal stenosis. There is anterior bridging osteophyte at C5-6. Epiglottis is normal. Prevertebral soft tissues are intact. The tongue appears i ntact. Subglottic trachea appears normal. Submandibular salivary glands appear normal. Parotid glands appear normal. There is no evidence of a pharyngeal mass. There are small mucus retention cysts in t he maxillary sinuses. Orbital margins are intact. There is no retro-orbital mass. Tonsils and adenoid s are within normal limits. IMPRESSION: C5-6 spondylotic changes with posterior mild disc herniation. No evidence of traumatic injury of the soft tissues of the neck.
[2020-05-22 17:29] VITALS: BP 147/86; PULSE 81
== END 2020-05-22 17:31 | disposition home or self-care (01) ==
LOC: EC 14:57
DX: S10.0XXA Contusion of throat, initial encounter (principal); S80.211A Abrasion, right knee, initial encounter; M19.90 Unspecified osteoarthritis, unspecified site; Z79.1 Long term (current) use of non-steroidal anti-inflammatories (NSAID); Z86.14 Personal history of Methicillin resistant Staphylococcus aureus infection; W01.0XXA Fall on same level from slipping, tripping and stumbling without subsequent striking against object, initial encounter; Y92.69 Other specified industrial and construction area as the place of occurrence of the external cause; Y99.0 Civilian activity done for income or pay
CPT/HCPCS: 70490; 99283

== ENCOUNTER → 2020-05-23 | Outpatient (CLI) | payer OTHER ==
--- NOTE | 2020-05-23 15:44 | XR ---
EXAMINATION TYPE: XR knee complete RT DATE OF EXAM: 05/23/2020 CLINICAL HISTORY: Pain after injury yesterday. TECHNIQUE: Three views of the right knee are obtained. COMPARISON: None. FINDINGS: There is no acute fracture/dislocation evident in right knee. Mild to moderate narrowing m edial tibiofemoral and patellofemoral compartments. No significant spurring. The overlying soft tiss ue appears unremarkable. IMPRESSION: There is no acute fracture or dislocation in the right knee.
== END | disposition home or self-care (01) ==
LOC: RAD 15:14
PROVIDERS: ATTEND Emergency Medicine
DX: S80.01XA Contusion of right knee, initial encounter (principal)

== ENCOUNTER → 2020-08-22 | Outpatient (CLI) | payer OTHER | END | disposition home or self-care (01) | LOC: LABWHC1 13:22 | PROVIDERS: ATTEND Family Medicine | DX: U07.1 COVID-19 (principal); B89 Unspecified parasitic disease | CPT/HCPCS: U0003; C9803; U0005 ==

== ENCOUNTER 2022-05-24 15:27 | Emergency (ER) | payer OTHER ==
[2022-05-24 15:49] VITALS: BP 133/91; PULSE 97; RESP 16; TEMP 98.5
[2022-05-24 16:10] LABS: Basophils % (A) 1 %; Eosinophils % (A) 1 %; HCT 45.1 % (39.0-53.0); HGB 15.7 gm/dL (13.0-17.5); Lymphocytes # (A) 0.7 k/uL (1.0-4.8); Lymphocytes % (A) 10 %; MCH 30.6 pg (25.0-35.0); MCHC 34.7 g/dL (31.0-37.0); MCV 88.2 fL (80.0-100.0); Mean Platelet Volume 8.7; Monocytes # (A) 0.4 k/uL (0-1.0); Monocytes % (A) 5 %; Neutrophils # (A) 5.7 k/uL (1.3-7.7); Neutrophils % (A) 80 %; Platelet Count 216 k/uL (150-450); RBC 5.11 m/uL (4.30-5.90); RDW 12.7 % (11.5-15.5); WBC 7.1 k/uL (3.8-10.6)
[2022-05-24 16:19] LABS: Appearance,Urine Clear (Clear); Bilirubin,Urine Negative (Negative); Blood,Urine Negative (Negative); Color,Urine Yellow; Glucose,Urine (UA) Negative (Negative); Ketones,Urine 2+ (Negative); Leukocyte Esterase,Urine Negative (Negative); Mucus,Urine Rare /hpf; Nitrite,Urine Negative (Negative); PH, Urine 5.5 (5.0-8.0); Protein,Urine 1+ (Negative); RBC,Urine 1 /hpf (0-5); Specific Gravity,Urine 1.025 (1.001-1.035); Urobilinogen,Urine <2.0 mg/dL (<2.0); WBC,Urine 1 /hpf (0-5)
[2022-05-24 16:32] LABS: ALT 37 U/L (4-49); AST 31 U/L (17-59); African American GFR (CKD) >90 (>60 ml/min/1.73 sqM); Albumin 4.5 g/dL (3.5-5.0); Alkaline Phosphatase 63 U/L (38-126); Amylase 41 U/L (30-110); Anion Gap 14 mmol/L; Blood Urea Nitrogen 16 mg/dL (9-20); Calcium 8.6 mg/dL (8.4-10.2); Carbon Dioxide 18 mmol/L (22-30); Chloride 106 mmol/L (98-107); Glucose 133 mg/dL (74-99); Lipase 35 U/L (23-300); Non-African American GFR(CKD) >90 (>60 ml/min/1.73 sqM); Potassium 3.9 mmol/L (3.5-5.1); Sodium 138 mmol/L (137-145); Total Bilirubin 0.6 mg/dL (0.2-1.3); Total Protein 7.6 g/dL (6.3-8.2)
--- NOTE | 2022-05-24 16:48 | XR ---
EXAMINATION TYPE: XR KUB DATE OF EXAM: 05/24/2022 COMPARISON: 12/24/2015 HISTORY: Abdominal pain TECHNIQUE: 2 views upright FINDINGS: There is no sign of intestinal obstruction or pneumoperitoneum. There are a few large bowel fluid levels. No dilation. No evidence of a mass. There are no pathologic calcifications over the ki dneys. IMPRESSION: There is some large bowel fluid that could relate to diarrhea. No free air. No bowel obst ruction.
--- NOTE | 2022-05-24 19:24 | ED ---
General Adult HPI - General Chief complaint: Abdominal Pain Stated complaint: vomiting,cold chills Source: patient Mode of arrival: ambulatory Limitations: no limitations - History of Present Illness Initial comments: 46 year old male presents to the emergency department for abdominal pain X 2 days. He has tried bepto bismol with mild relief. He complains of accompanying symptoms of nausea, vomiting, and diarrhea. No known sick contacts. No aggravating or alleviating factors. Has been able to tolerte some oral intake. Denies fever, chills, headache, dizziness, chest pain, shortness of breath, dysuria, or hematuria. - Related Data Home Medications Medication Instructions Recorded Confirmed Ibuprofen [Motrin] 600 mg PO QID 04/22/18 04/22/18 Previous Rx's Medication Instructions Recorded Amoxicillin/Potassium Clav 1 tab PO Q12HR #20 tab 04/22/18 [Augmentin 875-125 Tablet] predniSONE 50 mg PO DAILY #5 tab 04/22/18 Amoxicillin/Potassium Clav 1 tab PO Q12HR #20 tab 10/29/18 [Augmentin 875-125 Tablet] Allergies Allergy/AdvReac Type Severity Reaction Status Date / Time morphine Allergy Anaphylaxis Verified 05/24/22 15:49 Review of Systems ROS Statement: Those systems with pertinent positive or pertinent negative responses have been documented in the HPI. ROS Other: All systems not noted in ROS Statement are negative. Past Medical History Past Medical History: Asthma, GERD/Reflux, Hypertension, Osteoarthritis (OA) Additional Past Medical History / Comment(s): Hx Bronchitis,hiatal hernia. History of Any Multi-Drug Resistant Organisms: MRSA Date of last positivie culture/infection: 01/2015 MDRO Source:: back of neck Past Surgical History: Hernia Repair Additional Past Surgical History / Comment(s): RIGHT LEG DEBRIDEMENT POST SPIDER BITE years ago. EGD/COLONOSCOPY, 16 Kary Fundoplication. Past Anesthesia/Blood Transfusion Reactions: No Reported Reaction Past Psychological History: No Psychological Hx Reported Past Alcohol Use History: Occasional Past Drug Use History: None Reported - Past Family History Father History Unknown: Yes Family Medical History: No Reported History Mother Family Medical History: Cancer Additional Family Medical History / Comment(s): Tongue General Exam Limitations: no limitations General appearance: alert, in no apparent distress Respiratory exam: Present: normal lung sounds bilaterally. Absent: respiratory distress, wheezes, rales, rhonchi, stridor Cardiovascular Exam: Present: regular rate, normal rhythm, normal heart sounds. Absent: systolic murmur, diastolic murmur, rubs, gallop, clicks GI/Abdominal exam: Present: soft, guarding (Guarding of the abdomen; no focal area of discomfort.), normal bowel sounds. Absent: distended, tenderness, rebou nd, rigid Neurological exam: Present: alert, oriented X3 Course Vital Signs 05/24/22 15:47 Temperature 98.5 F Pulse Rate 97 Respiratory 16 Rate Blood Pressure 133/91 O2 Sat by Pulse 97 Oximetry Medical Decision Making - Medical Decision Making 46-year-old male with no significant past medical history presents to the emergency Department with complaints of nausea, vomiting, diarrhea 2 days. Patient was seen and examined briefly in triage. Advanced triage protocol orders placed. Laboratory studies were obtained showing 2+ ketones in the urine. Lactic 1.1. Electrolytes within normal limits. Cepheid negative. KUB unremarkable. Patient left from the waiting room therefore did not receive IV fluids or any further assessment. No discharge orders were placed. No return parameters were discussed. Attending: Arlen. Was pt. sent in by a medical professional or institution? @ -No Did you speak to anyone other than the patient for history? @ -No Did you review nursing and triage notes? @ -Yes, agree Were old charts reviewed? @ -No Differential Diagnosis? @ -Gastroenteritis, abdominal pain, nausea, vomiting, diarrhea, illness, obstruction, this is not meant to be an exhaustive list EKG interpreted by me (3pts min.)? @ -Not applicable X-rays interpreted by me (1pt min.)? @ -KUB x-ray was interpreted by me showing no evidence of obstruction. CT interpreted by me (1pt min.)? @ -Not applicable U/S interpreted by me (1pt. min.)? @ -Not applicable What testing was considered but not performed? (CT, X-rays, U/S, labs)? Why? @ -Patient left AGAINST MEDICAL ADVICE from the waiting room therefore was evaluated for any further testing. What meds were considered but not given? Why? @ -Would have given IV fluids and Zofran, possibly pain medicine, had patient then placed in a room and evaluated properly Did you discuss the management of the patient with other professionals? @ -None Did you reconcile home meds? @ -No Was smoking cessation discussed for >3mins.? @ -No Was critical care preformed (if so, how long)? @ -No Were there social determinants of health that impacted care today? How? (Homelessness, low income, unemployed, alcoholism, drug addiction, transportation, low edu. Level, literacy, decrease access to med. care, long-term, re hab)? @ -No Was there de-escalation of care discussed even if they declined? (Discuss DNR or withdrawal of care, Hospice)? @ -No What co-morbidities impacted this encounter? (DM, HTN, Smoking, COPD, CAD, Cancer, CVA, Hep., AIDS, mental health diagnosis, sleep apnea, morbid obesity)? @No Was patient admitted / discharged? @ -Discharged. Left AGAINST MEDICAL ADVICE. Eloped from ED waiting room. Undiagnosed new problem with uncertain prognosis? @ -None Drug Therapy requiring intensive monitoring for toxicity (Heparin, Nitro, Insulin, Cardizem)? @ -None Were any procedures done? @ -None Diagnosis/symptom? @ -Diarrhea Acute, or Chronic, or Acute on Chronic? @ -Acute Uncomplicated (without systemic symptoms) or Complicated (systemic symptoms)? @ -Uncomplicated Side effects of treatment? @ -None Exacerbation, Progression, or Severe Exacerbation] @ -No Poses a threat to life or bodily function? @ -No - Lab Data Result diagrams: 05/24/22 16:04 05/24/22 16:04 Lab Results 05/24/22 05/24/22 05/24/22 Range/Units 16:04 16:04 16:04 WBC 7.1 (3.8-10.6) k/uL RBC 5.11 (4.30-5.90) m/uL Hgb 15.7 (13.0-17.5) gm/dL Hct 45.1 (39.0-53.0) % MCV 88.2 (80.0-100.0) fL MCH 30.6 (25.0-35.0) pg MCHC 34.7 (31.0-37.0) g/dL RDW 12.7 (11.5-15.5) % Plt Count 216 (150-450) k/uL MPV 8.7 Neutrophils % 80 % Lymphocytes % 10 % Monocytes % 5 % Eosinophils % 1 % Basophils % 1 % Neutrophils # 5.7 (1.3-7.7) k/uL Lymphocytes # 0.7 L (1.0-4.8) k/uL Monocytes # 0.4 (0-1.0) k/uL Eosinophils # 0.0 (0-0.7) k/uL Basophils # 0.0 (0-0.2) k/uL Sodium 138 (137-145) mmol/L Potassium 3.9 (3.5-5.1) mmol/L Chloride 106 (98-107) mmol/L Carbon Dioxide 18 L (22-30) mmol/L Anion Gap 14 mmol/L BUN 16 (9-20) mg/dL Creatinine 0.85 (0.66-1.25) mg/dL Est GFR (CKD-EPI)AfAm >90 (>60 ml/min/1.73 sqM) Est GFR (CKD-EPI)NonAf >90 (>60 ml/min/1.73 sqM) Glucose 133 H (74-99) mg/dL Plasma Lactic Acid Fabiano 1.1 (0.7-2.0) mmol/L Calcium 8.6 (8.4-10.2) mg/dL Total Bilirubin 0.6 (0.2-1.3) mg/dL AST 31 (17-59) U/L ALT 37 (4-49) U/L Alkaline Phosphatase 63 (38-126) U/L Total Protein 7.6 (6.3-8.2) g/dL Albumin 4.5 (3.5-5.0) g/dL Amylase 41 (30-110) U/L Lipase 35 (23-300) U/L Urine Color Urine Appearance (Clear) Urine pH (5.0-8.0) Ur Specific [place] (1.001-1.035) Urine Protein (Negative) Urine Glucose (UA) (Negative) Urine Ketones (Negative) Urine Blood (Negative) Urine Nitrite (Negative) Urine Bilirubin (Negative) Urine Urobilinogen (<2.0) mg/dL Ur Leukocyte Esterase (Negative) Urine RBC (0-5) /hpf Urine WBC (0-5) /hpf Urine Mucus (None) /hpf Influenza Type A (PCR) (Not Detectd) Influenza Type B (PCR) (Not Detectd) RSV (PCR) (Not Detectd) SARS-CoV-2 (PCR) (Not Detectd) 05/24/22 05/24/22 Range/Units 16:05 16:06 WBC (3.8-10.6) k/uL RBC (4.30-5.90) m/uL Hgb (13.0-17.5) gm/dL Hct (39.0-53.0) % MCV (80.0-100.0) fL MCH (25.0-35.0) pg MCHC (31.0-37.0) g/dL RDW (11.5-15.5) % Plt Count (150-450) k/uL MPV Neutrophils % % Lymphocytes % % Monocytes % % Eosinophils % % Basophils % % Neutrophils # (1.3-7.7) k/uL Lymphocytes # (1.0-4.8) k/uL Monocytes # (0-1.0) k/uL Eosinophils # (0-0.7) k/uL Basophils # (0-0.2) k/uL Sodium (137-145) mmol/L Potassium (3.5-5.1) mmol/L Chloride (98-107) mmol/L Carbon Dioxide (22-30) mmol/L Anion Gap mmol/L BUN (9-20) mg/dL Creatinine (0.66-1.25) mg/dL Est GFR (CKD-EPI)AfAm (>60 ml/min/1.73 sqM) Est GFR (CKD-EPI)NonAf (>60 ml/min/1.73 sqM) Glucose (74-99) mg/dL Plasma Lactic Acid Fabiano (0.7-2.0) mmol/L Calcium (8.4-10.2) mg/dL Total Bilirubin (0.2-1.3) mg/dL AST (17-59) U/L ALT (4-49) U/L Alkaline Phosphatase (38-126) U/L Total Protein (6.3-8.2) g/dL Albumin (3.5-5.0) g/dL Amylase (30-110) U/L Lipase (23-300) U/L Urine Color Yellow Urine Appearance Clear (Clear) Urine pH 5.5 (5.0-8.0) Ur Specific [place] 1.025 (1.001-1.035) Urine Protein 1+ H (Negative) Urine Glucose (UA) Negative (Negative) Urine Ketones 2+ H (Negative) Urine Blood Negative (Negative) Urine Nitrite Negative (Negative) Urine Bilirubin Negative (Negative) Urine Urobilinogen <2.0 (<2.0) mg/dL Ur Leukocyte Esterase Negative (Negative) Urine RBC 1 (0-5) /hpf Urine WBC 1 (0-5) /hpf Urine Mucus Rare H (None) /hpf Influenza Type A (PCR) Not Detected (Not Detectd) Influenza Type B (PCR) Not Detected (Not Detectd) RSV (PCR) Not Detected (Not Detectd) SARS-CoV-2 (PCR) Not Detected (Not Detectd) - Radiology Data Radiology results: report reviewed, image reviewed Interpreted by me: X-ray per my interpretation shows no evidence of obstruction. KUB x-ray was obtained. Report was reviewed in its entirety. Impression per Dr. Anthony is there is some large bowel fluid that could relate to diarrhea. No free air. No bowel instruction. Disposition Clinical Impression: Diarrhea Disposition: Left Against Medical Advice Condition: Stable Is patient prescribed a controlled substance at d/c from ED?: No Referrals: Low Beckford MD [Primary Care Provider] - 1-2 days
== END 2022-05-24 20:40 | disposition left against medical advice (07) ==
LOC: EC 15:27
DX: R19.7 Diarrhea, unspecified (principal); I10 Essential (primary) hypertension; J45.909 Unspecified asthma, uncomplicated; M19.90 Unspecified osteoarthritis, unspecified site; Z79.899 Other long term (current) drug therapy; Z20.822 Contact with and (suspected) exposure to COVID-19; Z53.29 Procedure and treatment not carried out because of patient's decision for other reasons
CPT/HCPCS: 36415; 74018; 80053; 81001; 82150; 83605; 83690; 85025; 87636; 99283

== ENCOUNTER → 2023-08-26 | Outpatient (CLI) | payer OTHER ==
--- NOTE | 2023-08-26 14:00 | CT ---
EXAMINATION TYPE: CT brain wo con DATE OF EXAM: 08/26/2023 COMPARISON: None INDICATION: MIGRAINE DLP: 1064.3 mGycm, Automated exposure control for dose reduction was used. CONTRAST: None CT of the brain is performed utilizing 3 mm thick sections through the posterior fossa and 3 mm thick sections through the remaining calvarium. Study is performed within 24 hours of arrival to the hosp [facility]. No abnormal hyperdensity is present to suggest an acute intracranial hemorrhage. No mass lesion is evident. No acute infarcts are evident. Ventricles and sulci are appropriate for the patient age. Air-fluid levels are within the maxillary sinuses. Mild mucosal thickening is within ethmoid air cell s. Some minimal mucosal thickening is within posterior frontal sinuses. Sphenoid sinuses and mastoid air cells are clear. IMPRESSION: 1. No acute intracranial process. Follow-up MRI can be performed as clinically indicated. 2. Clinical correlation recommended for acute sinusitis
--- NOTE | 2023-08-27 07:46 | XR ---
EXAMINATION TYPE: XR cervical spine limited DATE OF EXAM: 08/26/2023 CLINICAL HISTORY: pain TECHNIQUE: 3 views of the cervical spine are submitted. COMPARISON: None. FINDINGS: There is satisfactory in alignment without evidence of acute fracture or dislocation. The pre-vertebral soft tissue appears within normal limits. Moderate degenerative narrowing and spondylo sis at C5-6. Remaining levels are within normal limits. The C1-C2 articulation is unremarkable on the open mouth view. IMPRESSION: No acute fracture or dislocation is seen in the cervical spine.
== END | disposition home or self-care (01) ==
LOC: RADCTMAIN 12:25
PROVIDERS: ATTEND Family Medicine
DX: G43.909 Migraine, unspecified, not intractable, without status migrainosus (principal)
CPT/HCPCS: 70450; 72040

== ENCOUNTER → 2024-01-11 | Outpatient (CLI) | payer OTHER ==
--- NOTE | 2024-01-11 16:38 | XR ---
EXAMINATION TYPE: XR Hip Complete RT DATE OF EXAM: 01/11/2024 3:49 PM CLINICAL INDICATION: Male, 48 years old with history of RIGHT HIP PAIN R52; COMPARISON: None. TECHNIQUE: XR Hip Complete RT; hip was examined in the frontal and lateral projections and a AP pelvi s. FINDINGS: No evidence for acute process, joint dislocation or significant soft tissue swelling. Osteo phyte formation of the superior acetabulum of the hip. There is mild joint space narrowing. IMPRESSION: 1. No evidence for acute process. 2. Mild hip osteoarthrosis.
== END | disposition home or self-care (01) ==
LOC: RADXRMAIN 15:34
PROVIDERS: ATTEND Family Medicine
DX: M16.11 Unilateral primary osteoarthritis, right hip (principal)
CPT/HCPCS: 73502

== ENCOUNTER → 2024-03-31 | Outpatient (CLI) | payer OTHER | END | disposition home or self-care (01) | LOC: LABWHC1 09:28 | PROVIDERS: ATTEND Family Medicine | DX: B89 Unspecified parasitic disease (principal) | CPT/HCPCS: 87636 ==

== ENCOUNTER 2024-09-17 10:50 | Emergency (ER) | payer OTHER ==
[2024-09-17 10:56] VITALS: RESP 18
[2024-09-17] MEDS: SODIUM CHLORIDE 0.9% 1,000 ML IV STA (11:32)
[2024-09-17 11:39] LABS: Basophils # (A) 0.07 10*3/uL (0.00-0.10); Basophils % (A) 1.2 %; Eosinophils # (A) 0.17 10*3/uL (0.04-0.35); HCT 41.2 % (39.6-50.0); Lymphocytes # (A) 1.63 10*3/uL (0.90-5.00); Lymphocytes % (A) 28.7 %; MCH 29.7 pg (27.0-32.0); MCV 87.5 fL (80.0-97.0); Mean Platelet Volume 10.1 fL (9.5-12.2); Monocytes # (A) 0.34 10*3/uL (0.20-1.00); Neutrophils # (A) 3.45 10*3/uL (1.80-7.70); Neutrophils % (A) 60.9 %; Platelet Count 223 10*3/uL (140-440); RBC 4.71 10*6/uL (4.40-5.60); RDW 12.5 % (11.5-14.5); WBC 5.67 10*3/uL (4.50-10.00)
--- NOTE | 2024-09-17 11:44 | XR ---
EXAMINATION TYPE: XR chest 2V DATE OF EXAM: 09/17/2024 11:38 AM COMPARISON: Chest radiographs from 04/22/2018 TECHNIQUE: XR chest 2V Frontal and lateral views of the chest. CLINICAL INDICATION:Male, 49 years old with history of Chest Pain; FINDINGS: Lungs/Pleura: There is no evidence of pleural effusion, focal consolidation, or pneumothorax. Pulmonary vascularity: Unremarkable. Heart/mediastinum: Cardiomediastinal silhouette is unremarkable. Musculoskeletal: No acute osseous pathology. IMPRESSION: No acute cardiopulmonary disease/process. [facility], , 09/17/2024 11:41 AM
[2024-09-17 11:52] LABS: ALT 17 U/L (4-49); AST 23 U/L (17-59); African American GFR (CKD) >90 (>60 ml/min/1.73 sqM); Albumin 4.4 g/dL (3.5-5.0); Alkaline Phosphatase 45 U/L (38-126); Anion Gap 10 mmol/L; Blood Urea Nitrogen 7 mg/dL (9-20); Calcium 9.7 mg/dL (8.4-10.2); Carbon Dioxide 25 mmol/L (22-30); Chloride 107 mmol/L (98-107); Glucose 102 mg/dL (74-99); Lipase 93 U/L (23-300); Magnesium 2.2 mg/dL (1.6-2.3); Non-African American GFR(CKD) >90 (>60 ml/min/1.73 sqM); Potassium 4.4 mmol/L (3.5-5.1); Sodium 142 mmol/L (137-145); Total Bilirubin 0.7 mg/dL (0.2-1.3); Total Protein 7.3 g/dL (6.3-8.2)
--- NOTE | 2024-09-17 11:55 | ED ---
General Adult HPI - General Chief complaint: Recheck/Abnormal Lab/Rx Stated complaint: chest pain,spitting up blood Time Seen by Provider: 09/17/24 11:14 Source: patient Mode of arrival: ambulatory Limitations: no limitations - History of Present Illness Initial comments: 49-year-old male presenting with chief complaint of hemoptysis. Patient reports for the last 3 days he has had a sharp centralized chest pain that is worse with deep breaths and coughing. Patient does also report cough. Today he coughed up something brown in his sputum that resembled a blood clot. He is having no lower extremity swelling. No recent surgery or travel. No history of blood clots. No blood thinner use. No fever. No nausea vomiting or abdominal pain. Patient does not feel short of breath but he has been taking shallow breaths due to the pain. - Related Data Home Medications Medication Instructions Recorded Confirmed Ibuprofen [Motrin] 600 mg PO QID 04/22/18 04/22/18 Previous Rx's Medication Instructions Recorded Amoxicillin/Potassium Clav 1 tab PO Q12HR #20 tab 04/22/18 [Augmentin 875-125 Tablet] predniSONE 50 mg PO DAILY #5 tab 04/22/18 Amoxicillin/Potassium Clav 1 tab PO Q12HR #20 tab 10/29/18 [Augmentin 875-125 Tablet] Albuterol Sulfate [Albuterol 1 puff PO Q4-6H PRN #8.5 gm 09/17/24 Sulfate Hfa] Allergies Allergy/AdvReac Type Severity Reaction Status Date / Time codeine Allergy Anaphylaxis Verified 09/17/24 10:56 hydromorphone [From Dilaudid] Allergy Anaphylaxis Verified 09/17/24 10:56 morphine Allergy Anaphylaxis Verified 05/24/22 15:49 Review of Systems ROS Statement: Those systems with pertinent positive or pertinent negative responses have been documented in the HPI. ROS Other: All systems not noted in ROS Statement are negative. Past Medical History Past Medical History: Asthma, GERD/Reflux, Hypertension, Osteoarthritis (OA) Additional Past Medical History / Comment(s): Hx Bronchitis,hiatal hernia. History of Any Multi-Drug Resistant Organisms: MRSA Date of last positivie culture/infection: 01/2015 MDRO Source:: back of neck Past Surgical History: Hernia Repair Additional Past Surgical History / Comment(s): RIGHT LEG DEBRIDEMENT POST SPIDER BITE years ago. EGD/COLONOSCOPY, 07-24-15 Kary Fundoplication. Past Anesthesia/Blood Transfusion Reactions: No Reported Reaction Past Psychological History: No Psychological Hx Reported Smoking Status: Never smoker Past Alcohol Use History: Occasional Past Drug Use History: None Reported - Past Family History Father History Unknown: Yes Family Medical History: No Reported History Mother Family Medical History: Cancer Additional Family Medical History / Comment(s): Tongue General Exam Limitations: no limitations General appearance: alert, in no apparent distress Head exam: Present: atraumatic, normocephalic, normal inspection Eye exam: Present: normal appearance, EOMI Neck exam: Present: normal inspection. Absent: meningismus Respiratory exam: Present: normal lung sounds bilaterally. Absent: respiratory distress, wheezes, rales, rhonchi, stridor Cardiovascular Exam: Present: regular rate, normal rhythm, normal heart sounds. Absent: systolic murmur, diastolic murmur, rubs, gallop, clicks Extremities exam: Absent: pedal edema Neurological exam: Present: alert, oriented X3 Psychiatric exam: Present: normal affect, normal mood Skin exam: Present: warm, dry, normal color Course Vital Signs 09/17/24 09/17/24 10:52 12:27 Temperature 98.1 F 98.0 F Pulse Rate 78 73 Respiratory 18 18 Rate Blood Pressure 125/78 129/84 O2 Sat by Pulse 99 100 Oximetry Medical Decision Making - Medical Decision Making EKG shows sinus rhythm ventricular rate 78. AL interval 139. QRS 86. QT 372. QTc 406. Was pt. sent in by a medical professional or institution (, PA, AUTOMOTIVE SALES PROFESSIONAL, urgent care, hospital, or alf...) When possible be specific @ -No Did you speak to anyone other than the patient for history (EMS, parent, family, police, friend...)? What history was obtained from this source @ -No Did you review nursing and triage notes (agree or disagree)? Why? @ -I reviewed and agree with nursing and triage notes Were old charts reviewed (outside hosp., previous admission, EMS record, old EKG, old radiological studies, urgent care reports/EKG's, alf records)? Report findings @ -No old charts were reviewed Differential Diagnosis (chest pain, altered mental status, abdominal pain women, abdominal pain men, vaginal bleeding, weakness, fever, dyspnea, syncope, headache, dizziness, GI bleed, back pain, seizure, CVA, palpatations, mental health, musculoskeletal)? @ -MDM Differential Chest Pain: Stable Angina, Unstable Angina, STEMI, NSTEMI Aortic Dissection, Pneumothorax, Musculoskeletal, Esophageal Spasm GERD, Cholecystitis, Pancreatitis, Zosterâ€¦ This is not meant to be an all-inclusive list. EKG interpreted by me (3pts min.). @ -As above X-rays interpreted by me (1pt min.). @ -Chest x-ray shows no acute process CT interpreted by me (1pt min.). @ -None done U/S interpreted by me (1pt. min.). @ -None done What testing was considered but not performed or refused? (CT, X-rays, U/S, labs)? Why? @ -None What meds were considered but not given or refused? Why? @ -None Did you discuss the management of the patient with other professionals (annabella valente i.e. , PA, AUTOMOTIVE SALES PROFESSIONAL, lab, RT, psych nurse, social welfare research worker, forest fire lookout, teacher, chemistry technical officer, patient case manager)? Give summary @ -No Was smoking cessation discussed for >3mins.? @ -No Was critical care preformed (if so, how long)? @ -No Were there social determinants of health that impacted care today? How? (Homelessness, low income, unemployed, alcoholism, drug addiction, transportation, low edu. Level, literacy, decrease access to med. care, [facility], rehab)? @ -No Was there de-escalation of care discussed even if they declined (Discuss DNR or withdrawal of care, Hospice)? DNR status @ -No What co-morbidities impacted this encounter? (DM, HTN, Smoking, COPD, CAD, Cancer, CVA, ARF, Chemo, Hep., AIDS, mental health diagnosis, sleep apnea, morbid obesity)? @ -None Was patient admitted / discharged? Hospital course, mention meds given and route, prescriptions, significant lab abnormalities, going to OR and other pertinent info. @ -49-year-old male presenting with chief complaint of hemoptysis today. Patient has had a cough and chest pain with coughing and deep breaths. History and physical examination are conducted. Lab work shows no leukocytosis or anemia. D-dimer is 0.22. And negative troponin. Chest x-ray shows no acute process. Past medical history includes asthma GERD hypertension and osteoarthritis. Symptoms most likely consistent with bronchitis. Patient is educated on today's findings and supportive management at home. Follow-up with PCP. Report back to ER with any new or worsening symptoms. Discussed return parameters and answered all questions. Patient conveyed verbal understanding and agreed to the plan. I discussed this case in detail with my attending Dr. Napier Undiagnosed new problem with uncertain prognosis? @ -No Drug Therapy requiring intensive monitoring for toxicity (Heparin, Nitro, Insulin, Cardizem)? @ -No Were any procedures done? @ -No Diagnosis/symptom? @ -Bronchitis Acute, or Chronic, or Acute on Chronic? @ -Acute Uncomplicated (without systemic symptoms) or Complicated (systemic symptoms)? @ -Uncomplicated Side effects of treatment? @ -No Exacerbation, Progression, or Severe Exacerbation? @ -No Poses a threat to life or bodily function? How? (Chest pain, [place], [place], pneumonia, PE, COPD, DKA, ARF, appy, cholecystitis, CVA, Diverticulitis, Homicidal, Suicidal, threat to staff... and all critical care pts) @ -Low likelihood - Lab Data Result diagrams: 09/17/24 11:29 09/17/24 11:29 Lab Results 09/17/24 09/17/24 09/17/24 Range/Units 11:29 11:29 11:29 WBC 5.67 (4.50-10.00) 10*3/uL RBC 4.71 (4.40-5.60) 10*6/uL Hgb 14.0 (13.0-17.0) g/dL Hct 41.2 (39.6-50.0) % MCV 87.5 (80.0-97.0) fL MCH 29.7 (27.0-32.0) pg MCHC 34.0 (32.0-37.0) g/dL Plt Count 223 (140-440) 10*3/uL MPV 10.1 (9.5-12.2) fL Immature Gran % (Auto) 0.2 % Neutrophils % 60.9 % Lymphocytes % 28.7 % Monocytes % 6.0 % Eosinophils % 3.0 % Basophils % 1.2 % Immature Gran # 0.01 (0.00-0.04) 10*3/uL Neutrophils # 3.45 (1.80-7.70) 10*3/uL Lymphocytes # 1.63 (0.90-5.00) 10*3/uL Monocytes # 0.34 (0.20-1.00) 10*3/uL Eosinophils # 0.17 (0.04-0.35) 10*3/uL Basophils # 0.07 (0.00-0.10) 10*3/uL PT 10.3 (10.0-12.5) sec INR 0.9 (<1.2) APTT 22.1 (22.0-30.0) sec D-Dimer 0.22 (<0.60) mg/L FEU Sodium 142 (137-145) mmol/L Potassium 4.4 (3.5-5.1) mmol/L Chloride 107 (98-107) mmol/L Carbon Dioxide 25 (22-30) mmol/L Anion Gap 10 mmol/L BUN 7 L (9-20) mg/dL Creatinine 0.78 (0.66-1.25) mg/dL Est GFR (CKD-EPI)AfAm >90 (>60 ml/min/1.73 sqM) Est GFR (CKD-EPI)NonAf >90 (>60 ml/min/1.73 sqM) Glucose 102 H (74-99) mg/dL Calcium 9.7 (8.4-10.2) mg/dL Magnesium 2.2 (1.6-2.3) mg/dL Total Bilirubin 0.7 (0.2-1.3) mg/dL AST 23 (17-59) U/L ALT 17 (4-49) U/L Alkaline Phosphatase 45 (38-126) U/L Troponin I (0.000-0.034) ng/mL Total Protein 7.3 (6.3-8.2) g/dL Albumin 4.4 (3.5-5.0) g/dL Lipase 93 (23-300) U/L 09/17/24 Range/Units 11:29 WBC (4.50-10.00) 10*3/uL RBC (4.40-5.60) 10*6/uL Hgb (13.0-17.0) g/dL Hct (39.6-50.0) % MCV (80.0-97.0) fL MCH (27.0-32.0) pg MCHC (32.0-37.0) g/dL Plt Count (140-440) 10*3/uL MPV (9.5-12.2) fL Immature Gran % (Auto) % Neutrophils % % Lymphocytes % % Monocytes % % Eosinophils % % Basophils % % Immature Gran # (0.00-0.04) 10*3/uL Neutrophils # (1.80-7.70) 10*3/uL Lymphocytes # (0.90-5.00) 10*3/uL Monocytes # (0.20-1.00) 10*3/uL Eosinophils # (0.04-0.35) 10*3/uL Basophils # (0.00-0.10) 10*3/uL PT (10.0-12.5) sec INR (<1.2) APTT (22.0-30.0) sec D-Dimer (<0.60) mg/L FEU Sodium (137-145) mmol/L Potassium (3.5-5.1) mmol/L Chloride (98-107) mmol/L Carbon Dioxide (22-30) mmol/L Anion Gap mmol/L BUN (9-20) mg/dL Creatinine (0.66-1.25) mg/dL Est GFR (CKD-EPI)AfAm (>60 ml/min/1.73 sqM) Est GFR (CKD-EPI)NonAf (>60 ml/min/1.73 sqM) Glucose (74-99) mg/dL Calcium (8.4-10.2) mg/dL Magnesium (1.6-2.3) mg/dL Total Bilirubin (0.2-1.3) mg/dL AST (17-59) U/L ALT (4-49) U/L Alkaline Phosphatase (38-126) U/L Troponin I <0.012 (0.000-0.034) ng/mL Total Protein (6.3-8.2) g/dL Albumin (3.5-5.0) g/dL Lipase (23-300) U/L Disposition Clinical Impression: Bronchitis Disposition: HOME SELF-CARE Condition: Good Instructions (If sedation given, give patient instructions): Acute Bronchitis (ED) Additional Instructions: Follow-up with PCP. Report back to ER with any new or worsening symptoms. Prescriptions: Albuterol Sulfate [Albuterol Sulfate Hfa] 1 puff PO Q4-6H PRN #8.5 gm PRN Reason: Shortness Of Breath Is patient prescribed a controlled substance at d/c from ED?: No Referrals: Low Beckford MD [Primary Care Provider] - 1-2 days Time of Disposition: 12:15
[2024-09-17 11:59] LABS: INR 0.9 (<1.2); Partial Thromboplastin Time 22.1 sec (22.0-30.0); Prothrombin Time 10.3 sec (10.0-12.5)
[2024-09-17 12:29] VITALS: BP 129/84; PULSE 73; TEMP 98
== END 2024-09-17 12:18 | disposition home or self-care (01) ==
LOC: EC 10:50
DX: J40 Bronchitis, not specified as acute or chronic (principal); Z88.5 Allergy status to narcotic agent; Z88.8 Allergy status to other drugs, medicaments and biological substances
CPT/HCPCS: 36415; 71046; 80053; 83690; 83735; 84484; 85025; 85379; 85610; 85730; 93005; 96360; 99285

== ENCOUNTER 2024-10-25 08:32 | Emergency (ER) | payer OTHER ==
[2024-10-25 08:35] VITALS: RESP 18
--- NOTE | 2024-10-25 08:53 | ED ---
General Adult HPI - General Chief complaint: Fever Stated complaint: fever,cough Time Seen by Provider: 10/25/24 08:35 Source: patient, RN notes reviewed, old records reviewed Mode of arrival: ambulatory Limitations: no limitations - History of Present Illness Initial comments: This is a 49-year-old male who presents to the emergency department stating that last night he had a fever he took some Tylenol he woke up again this morning he continued to have a fever and was coughing so he decided come to the emergency department. Patient denies any chest pain or shortness of breath. Patient denies any sputum production. Patient denies any sore throat. Patient denies any rashes or lesions. Patient denies any nausea or vomiting. - Related Data Home Medications Medication Instructions Recorded Confirmed Ibuprofen [Motrin] 600 mg PO QID 04/22/18 04/22/18 Previous Rx's Medication Instructions Recorded Amoxicillin/Potassium Clav 1 tab PO Q12HR #20 tab 04/22/18 [Augmentin 875-125 Tablet] predniSONE 50 mg PO DAILY #5 tab 04/22/18 Amoxicillin/Potassium Clav 1 tab PO Q12HR #20 tab 10/29/18 [Augmentin 875-125 Tablet] Albuterol Sulfate [Albuterol 1 puff PO Q4-6H PRN #8.5 gm 09/17/24 Sulfate Hfa] Allergies Allergy/AdvReac Type Severity Reaction Status Date / Time codeine Allergy Anaphylaxis Verified 10/25/24 08:35 hydromorphone [From Dilaudid] Allergy Anaphylaxis Verified 10/25/24 08:35 morphine Allergy Anaphylaxis Verified 10/25/24 08:35 Review of Systems ROS Statement: Those systems with pertinent positive or pertinent negative responses have been documented in the HPI. ROS Other: All systems not noted in ROS Statement are negative. Past Medical History Past Medical History: Asthma, GERD/Reflux, Hypertension, Osteoarthritis (OA) Additional Past Medical History / Comment(s): Hx Bronchitis,hiatal hernia. History of Any Multi-Drug Resistant Organisms: MRSA Date of last positivie culture/infection: 01/2015 MDRO Source:: back of neck Past Surgical History: Hernia Repair Additional Past Surgical History / Comment(s): RIGHT LEG DEBRIDEMENT POST SPIDER BITE years ago. EGD/COLONOSCOPY, 07-24-15 Kary Fundoplication. Past Anesthesia/Blood Transfusion Reactions: No Reported Reaction Past Psychological History: No Psychological Hx Reported Smoking Status: Never smoker Past Alcohol Use History: Occasional Past Drug Use History: None Reported - Past Family History Father History Unknown: Yes Family Medical History: No Reported History Mother Family Medical History: Cancer Additional Family Medical History / Comment(s): Tongue General Exam - General Exam Comments Initial Comments: GENERAL: Patient is well-developed and well-nourished. Patient is nontoxic and well- hydrated and is in mild distress. ENT: Neck is soft and supple. No significant lymphadenopathy is noted. Oropharynx is clear. Moist mucous membranes. Neck has full range of motion without eliciting any pain. EYES: The sclera were anicteric and conjunctiva were pink and moist. Extraocular movements were intact and pupils were equal round and reactive to light. Eyelids were unremarkable. PULMONARY: Unlabored respirations. Good breath sounds bilaterally. No audible rales rhonchi or wheezing was noted. CARDIOVASCULAR: There is a regular rate and rhythm without any murmurs gallops or rubs. ABDOMEN: Soft and nontender with normal bowel sounds. SKIN: Skin is clear with no lesions or rashes and otherwise unremarkable. NEUROLOGIC: Patient is alert and oriented x3. Cranial nerves II through XII are grossly intact. Motor and sensory are also intact. Normal speech, volume and content. Symmetrical smile. MUSCULOSKELETAL: Normal extremities with adequate strength and full range of motion. LYMPHATICS: No significant lymphadenopathy is noted PSYCHIATRIC: Normal psychiatric evaluation. Limitations: no limitations Course Vital Signs 10/25/24 10/25/24 08:33 08:42 Temperature 97.8 F Pulse Rate 78 Respiratory 18 18 Rate Blood Pressure 127/84 O2 Sat by Pulse 98 Oximetry Medical Decision Making - Medical Decision Making Was pt. sent in by a medical professional or institution (, PA, CERTIFIED MEDICAL AIDE, urgent care, hospital, or [facility]...) When possible be specific @ -No Did you speak to anyone other than the patient for history (EMS, parent, family, police, friend...)? What history was obtained from this source @ -No Did you review nursing and triage notes (agree or disagree)? Why? @ -I reviewed and agree with nursing and triage notes Were old charts reviewed (outside hosp., previous admission, EMS record, old EKG, old radiological studies, urgent care reports/EKG's, [facility] records)? Report findings @ -No old charts were reviewed Differential Diagnosis? @ -COVID, influenza A, influenza B, RSV, bronchitis, pneumonia, this is not an all-inclusive list EKG interpreted by me (3pts min.). @ -As above X-rays interpreted by me (1pt min.). @ -Chest x-ray shows no acute abnormality CT interpreted by me (1pt min.). @ -None done U/S interpreted by me (1pt. min.). @ -None done What testing was considered but not performed or refused? (CT, X-rays, U/S, labs)? Why? @ -None What meds were considered but not given or refused? Why? @ -None Did you discuss the management of the patient with other professionals (professionals i.e. , PA, CERTIFIED MEDICAL AIDE, lab, RT, psych nurse, social sciences department chair, automatic grinding machine operator, teacher, special technical operations officer, case resolution specialist)? Give summary @ -No Was smoking cessation discussed for >3mins.? @ -No Was critical care preformed (if so, how long)? @ -No Were there social determinants of health that impacted care today? How? (Homelessness, low income, unemployed, alcoholism, drug addiction, transportation, low edu. Level, literacy, decrease access to med. care, skilled nursing, rehab)? @ -No Was there de-escalation of care discussed even if they declined (Discuss DNR or withdrawal of care, Hospice)? DNR status @ -No What co-morbidities impacted this encounter? (DM, HTN, Smoking, COPD, CAD, Cancer, CVA, ARF, Chemo, Hep., AIDS, mental health diagnosis, sleep apnea, morbid obesity)? @ -None Was patient admitted / discharged? Hospital course, mention meds given and r oute, prescriptions, significant lab abnormalities, going to OR and other pertinent info. @ -Patient was never short of breath or having chest pain. Patient's viral swabs came up negative chest x-ray is negative. Undiagnosed new problem with uncertain prognosis? @ -No Drug Therapy requiring intensive monitoring for toxicity (Heparin, Nitro, Insulin, Cardizem)? @ -No Were any procedures done? @ -No Diagnosis/symptom? @ -Upper respiratory infection Acute, or Chronic, or Acute on Chronic? @ -Acute Uncomplicated (without systemic symptoms) or Complicated (systemic symptoms)? @ -Uncomplicated Side effects of treatment? @ -No Exacerbation, Progression, or Severe Exacerbation? @ -No Poses a threat to life or bodily function? How? (Chest pain, [place], [place], pneumonia, PE, COPD, DKA, ARF, appy, cholecystitis, CVA, Diverticulitis, Homicidal, Suicidal, threat to staff... and all critical care pts) @ -No - Lab Data Lab Results 10/25/24 Range/Units 08:48 Influenza Type A (PCR) Not Detected (Not Detectd) Influenza Type B (PCR) Not Detected (Not Detectd) RSV (PCR) Not Detected (Not Detectd) SARS-CoV-2 (PCR) Not Detected (Not Detectd) Disposition Clinical Impression: Upper respiratory infection Disposition: HOME SELF-CARE Condition: Good Instructions (If sedation given, give patient instructions): Upper Respiratory Infection (ED), Fever in Adults (ED) Is patient prescribed a controlled substance at d/c from ED?: No Referrals: Low Beckford MD [Primary Care Provider] - 1-2 days Time of Disposition: 09:52
--- NOTE | 2024-10-25 09:35 | XR ---
EXAMINATION TYPE: XR chest 2V DATE OF EXAM: 10/25/2024 9:29 AM COMPARISON: Chest radiographs from 09/17/2024 TECHNIQUE: XR chest 2V Frontal and lateral views of the chest. CLINICAL INDICATION:Male, 49 years old with history of Difficulty breathing ; FINDINGS: Lungs/Pleura: There is no evidence of pleural effusion, focal consolidation, or pneumothorax. Pulmonary vascularity: Unremarkable. Heart/mediastinum: Cardiomediastinal silhouette is unremarkable. Musculoskeletal: No acute osseous pathology. IMPRESSION: No acute cardiopulmonary disease/process. [facility], , 10/25/2024 9:32 AM
[2024-10-25 09:41] LABS: Influenza A Not Detected (Not Detectd); Influenza B Not Detected (Not Detectd); RSV Not Detected (Not Detectd)
[2024-10-25 09:58] VITALS: BP 125/86; PULSE 74; TEMP 97.9
== END 2024-10-25 09:57 | disposition home or self-care (01) ==
LOC: EC 08:32
DX: J06.9 Acute upper respiratory infection, unspecified (principal); Z88.5 Allergy status to narcotic agent
CPT/HCPCS: 71046; 87636; 99283

== ENCOUNTER → 2024-11-29 | Outpatient (CLI) | payer OTHER ==
--- NOTE | 2024-11-29 16:14 | XR ---
EXAMINATION TYPE: XR cervical spine 5 views comp DATE OF EXAM: 11/29/2024 3:56 PM COMPARISON: 08/26/2023 CLINICAL INDICATION: Male, 49 years old with history of M50.1; PHH, pain TECHNIQUE: The cervical spine was imaged in frontal, lateral, odontoid and bilateral oblique. FINDINGS: Mild uncovertebral joint arthropathy mid to lower cervical spine. More moderate facet arthropathy mid cervical spine. No predental space widening or prevertebral soft tissue swelling. On the right, changes result in moderate bony neuroforaminal narrowing at C3-C4 and C4-C5. Mild at C5 -C6. On the left, changes result in moderate bony neuroforaminal narrowing at C4-C5. Reversal of the normal cervical lordosis. Mild degenerative disc disease and endplate spondylosis allen ecially at C5-C6. Alignment is maintained. Similar heterotopic ossification measuring 1.4 cm posterio r midline opposite the C5-C6 level. Limited odontoid view. IMPRESSION: 1. Reversal of the normal cervical lordosis. No malalignment. Mild degenerative disc disease particul bianca at C5-C6. 2. Facet and uncovertebral joint arthropathy contributing to moderate neural foraminal stenoses on th e right at C3-C4 and on both sides at C4-C5. [facility], , 11/29/2024 4:12 PM
== END | disposition home or self-care (01) ==
LOC: RADXRMAIN 15:26
PROVIDERS: ATTEND Family Medicine
DX: M48.02 Spinal stenosis, cervical region (principal); M50.122 Cervical disc disorder at C5-C6 level with radiculopathy; M47.22 Other spondylosis with radiculopathy, cervical region
CPT/HCPCS: 72050

== ENCOUNTER → 2024-12-16 | Outpatient (CLI) | payer OTHER ==
--- NOTE | 2024-12-16 16:57 | CT ---
EXAMINATION TYPE: CT cervical spine wo con CT DLP: 557.7 mGycm, Automated exposure control for dose reduction was used. DATE OF EXAM: 12/16/2024 4:36 PM COMPARISON: Cervical spine radiograph 11/29/2024, 08/26/2023. CLINICAL INDICATION:Male, 49 years old with history of M54.2 CERVICALGIA; PHH, NECK PAIN, HAND AND FO OT NUMBNESS, pain TECHNIQUE: Axial CT images from the skull base to the inferior aspect of T2 we obtained without intra venous contrast. Coronal and sagittal reformatted images were also reviewed. FINDINGS: Fracture: None. Osseous structures: Multilevel disc space narrowing. Anterior osteophytosis at C5-C6. Vacuum disease at this level. Vertebral alignment: Within normal limits. Spinal canal/Neural Foramina: Small disc bulge at C2-C3. No spinal canal stenosis. No neuroforaminal stenosis. Mild broad-based disc bulge at C3-C4. No spinal canal stenosis. Uncovertebral joint hypertrophy. Mild bilateral neuroforaminal stenosis. Eccentric left disc bulge with mild spinal canal stenosis at C4-C5. Uncovertebral joint hypertrophy w ith bilateral facet arthropathy. Mild bilateral neuroforaminal stenosis. Broad-based disc bulge with mild effacement of the anterior thecal sac at C5-C6. Mild to moderate can al stenosis. Uncovertebral joint hypertrophy with right facet arthropathy. Moderate right and mild le ft neural foraminal stenosis. Broad-based disc bulge at C6-C7 without significant spinal canal stenosis. The neural foramina are pa tent bilaterally. No significant spinal canal or neuroforaminal stenosis at C7-T1. Neck soft tissues: Prevertebral soft tissues are within normal limits. Other: The airway is patent. The lung apices are clear. Mucosal thickening with mucous retention cyst s within the bilateral visualized maxillary sinuses. Mild mucosal thickening of the visualized ethmoi d sinuses. IMPRESSION: 1. No evidence of cervical spine fracture. 2. Mild multilevel degenerative disc disease as described above. [facility], , 12/16/2024 4:54 PM
== END | disposition home or self-care (01) ==
LOC: RADCTMAIN 16:06
PROVIDERS: ATTEND Family Medicine
DX: M50.323 Other cervical disc degeneration at C6-C7 level (principal)
CPT/HCPCS: 72125